=== PATIENT | female | born 1990 | race Two or more races ===

== ENCOUNTER 2021-03-30 02:14 | Inpatient (IN) | payer MEDICAID ==
[~2021-03-30] VITALS: Ht 167.6 cm; Wt 86.0 kg
[2021-03-30 02:41] VITALS: BP 124/73
[2021-03-30 03:02] LABS: MICROSCOPIC INDICATED
[2021-03-30] MEDS ORDERED: METOCLOPRAMIDE 5 MG/ML, 2ML ONE (03:09)
[2021-03-30] MEDS ORDERED: NEWBORN KIT ONE (03:09)
[2021-03-30] MEDS ORDERED: SODIUM CITRATE/CITRIC ACID 15 ML UDC ONE (03:09)
[2021-03-30] MEDS ORDERED: OXYTOCIN 30U/ 0.9% NaCL 500ML 500 ML ONE (03:09)
[2021-03-30 03:15] VITALS: BP 124/73
[2021-03-30 03:30] VITALS: BP 124/73
[2021-03-30] MEDS ORDERED: CEFAZOLIN PMX 1GM/50ML 50 ML IVPB ONE (03:30)
[2021-03-30] MEDS ORDERED: SODIUM CITRATE/CITRIC ACID 30 ML UDC PO ONE (03:30)
[2021-03-30] MEDS ORDERED: LACTATED RINGERS 1,000 ML IVBOLUS ONE (03:30)
[2021-03-30] MEDS ORDERED: PLEASE ENTER ALLERGIES MC SCH (03:30)
[2021-03-30] MEDS ORDERED: METOCLOPRAMIDE 5 MG/ML, 2ML IV ONE (03:30)
[2021-03-30] MEDS ORDERED: ONDANSETRON 2MG/ML, 2ML IVPush ONE (03:30)
[2021-03-30] MEDS ORDERED: LACTATED RINGERS 1,000 ML IV SCH (03:30)
[2021-03-30 03:36] LABS: AMPHETAMINE SCREEN, URINE Negative (Negative); BARBITURATE SCREEN, URINE Negative (Negative); BENZODIAZEPINE SCREEN, URINE Negative (Negative); CANNABINOID SCREEN, URINE Negative (Negative); COCAINE SCREEN, URINE Negative (Negative); METHADONE SCREEN, URINE Negative (Negative); OPIATE SCREEN, URINE Negative (Negative)
[2021-03-30 03:43] LABS: BASOPHILS % (AUTO) 1 % (0-1); EOSINOPHILS % (AUTO) 1 % (1-7); LYMPHOCYTES % (AUTO) 19 % (22-44); MEAN CORPUSCULAR HEMOGLOBIN 31.5 pg (27.0-34.8); MEAN CORPUSCULAR HGB CONC 35.3 g/dL (32.4-35.8); MEAN PLATELET VOLUME 7.9 fL (7.4-10.4); MONOCYTES % (AUTO) 6 % (2-9); NEUTROPHILS % (AUTO) 73 % (42-75); PLATELET COUNT 389 x10^3/uL (130-400); RED BLOOD COUNT 3.58 x10^6/uL (3.82-5.3); RED CELL DISTRIBUTION WIDTH 13.6 % (9.6-15.2)
[2021-03-30 03:48] LABS: MD NO
[2021-03-30] MEDS ORDERED: EPHEDRINE 50 MG/ML, 1ML IVPush PRN (06:30)
[2021-03-30] MEDS ORDERED: FENTANYL/BUPIV./NS/PF 250 ML EPIDCONT SCH (06:30)
[2021-03-30] MEDS ORDERED: LACTATED RINGERS 1,000 ML IVBOLUS PRN (06:30)
[2021-03-30] MEDS ORDERED: DEXAMETHASONE 4 MG/ML, 1ML ONE (06:58)
[2021-03-30] MEDS ORDERED: EPHEDRINE 50 MG/ML, 1ML ONE (06:58)
[2021-03-30] MEDS ORDERED: OXYTOCIN 10 UNITS/ML, 1ML ONE (06:58)
[2021-03-30] MEDS ORDERED: PHENYLEPHRINE 10 MG/ML ONE (06:58)
[2021-03-30] MEDS ORDERED: CEFAZOLIN 1,000 MG ONE (06:58)
[2021-03-30] MEDS ORDERED: KETOROLAC 30 MG/1 ML ONE (06:58)
[2021-03-30] MEDS ORDERED: ONDANSETRON 2MG/ML, 2ML ONE (06:58)
[2021-03-30] MEDS ORDERED: FENTANYL PF 100 MCG/2ML ONE (06:58)
[2021-03-30] MEDS ORDERED: HYDROmorphone 2 MG/ML, 1ML IVPush PRN (07:00)
[2021-03-30] MEDS ORDERED: MIDAZOLAM 1 MG/ML, 2ML IV PRN (07:00)
[2021-03-30] MEDS ORDERED: ALBUTEROL SULFATE 2.5 MG/3 ML NPPB PRN (07:00)
[2021-03-30] MEDS ORDERED: FENTANYL PF 100 MCG/2ML IV PRN (07:00)
[2021-03-30] MEDS ORDERED: hydrALAzine 20 MG/ML, 1ML IV PRN (07:00)
[2021-03-30] MEDS ORDERED: PROMETHAZINE 25 MG/ML, 1ML IV PRN (07:00)
[2021-03-30] MEDS ORDERED: HYDROcodone/APAP 7.5-325MG/15ML UDC PO PRN (07:00)
[2021-03-30] MEDS ORDERED: LABETALOL 5MG/ML, 20ML IV PRN (07:00)
[2021-03-30] MEDS ORDERED: METOPROLOL 1 MG/ML, 5ML IV PRN (07:00)
[2021-03-30] MEDS ORDERED: OXYcodone 5 MG/5 ML ORAL.SOL UDC PO PRN (07:00)
[2021-03-30] MEDS ORDERED: ONDANSETRON 2MG/ML, 2ML IVPush PRN (07:00)
[2021-03-30] MEDS ORDERED: MEPERIDINE/PF 25MG/0.5ML IVPush PRN (07:00)
[2021-03-30] MEDS ORDERED: HYDROmorphone 2 MG/ML, 1ML ONE (07:24)
[2021-03-30] MEDS: LACTATED RINGERS 1,000 ML IV SCH ×5 (07:30→23:30)
[2021-03-30] MEDS ORDERED: MEPERIDINE/PF 50 MG/ML IM PRN (07:30)
[2021-03-30] MEDS ORDERED: IBUPROFEN 600 MG TABLET PO PRN (07:30)
[2021-03-30] MEDS ORDERED: MISOPROSTOL 200 MCG TABLET PR PRN (07:30)
[2021-03-30] MEDS ORDERED: METOCLOPRAMIDE 5 MG/ML, 2ML IV PRN (07:30)
[2021-03-30] MEDS ORDERED: morphine SULFATE 10 MG/ML, 1ML IM PRN (07:30)
[2021-03-30] MEDS ORDERED: ONDANSETRON 2MG/ML, 2ML IV PRN (07:30)
[2021-03-30] MEDS: OXYTOCIN 30U/ 0.9% NaCL 500ML 500 ML IV SCH ×2 (09:00→18:03)
[2021-03-30] MEDS: HYDROcodone/APAP 5/325 TABLET PO PRN ×3 (11:12→20:09)
[2021-03-30] MEDS: MORPHINE SULFATE 4 MG/ML, 1ML IVPush PRN ×2 (12:38→19:41)
[2021-03-30] MEDS: KETOROLAC 30 MG/1 ML IVPush SCH ×2 (13:56→20:08)
[2021-03-30 15:49] VITALS: BP 128/72
[2021-03-30] MEDS: PRENATAL VIT/IRON/FA 1 EACH TABLET PO SCH (16:18)
[2021-03-30] MEDS: SIMETHICONE 80 MG CHEW TAB PO PRN (16:19)
[2021-03-30 17:51] LABS: BASOPHILS % (AUTO) 0 % (0-1); EOSINOPHILS % (AUTO) 0 % (1-7); LYMPHOCYTES % (AUTO) 16 % (22-44); MEAN CORPUSCULAR HGB CONC 33.9 g/dL (32.4-35.8); MEAN PLATELET VOLUME 8.1 fL (7.4-10.4); MONOCYTES % (AUTO) 6 % (2-9); NEUTROPHILS % (AUTO) 77 % (42-75); PLATELET COUNT 310 x10^3/uL (130-400); RED BLOOD COUNT 3.47 x10^6/uL (3.82-5.3); RED CELL DISTRIBUTION WIDTH 13.6 % (9.6-15.2)
[2021-03-30 17:52] LABS: MD NO
[2021-03-30 19:30] VITALS: BP 123/77
[2021-03-30] MEDS: DOCUSATE 100 MG CAPSULE PO PRN (20:08)
[2021-03-31 01:00] VITALS: BP 111/70
[2021-03-31] MEDS: HYDROcodone/APAP 5/325 TABLET PO PRN ×3 (01:38→13:11)
[2021-03-31] MEDS: KETOROLAC 30 MG/1 ML IVPush SCH ×5 (02:20→20:33)
[2021-03-31] MEDS: SIMETHICONE 80 MG CHEW TAB PO PRN ×3 (02:20→20:25)
[2021-03-31] MEDS: OXYTOCIN 30U/ 0.9% NaCL 500ML 500 ML IV SCH ×3 (03:30→23:30)
[2021-03-31] MEDS: LACTATED RINGERS 1,000 ML IV SCH ×6 (03:30→23:30)
[2021-03-31 04:16] VITALS: BP 110/69
[2021-03-31 07:00] VITALS: BP 118/81
[2021-03-31] MEDS: DOCUSATE 100 MG CAPSULE PO PRN ×2 (08:34→20:25)
[2021-03-31] MEDS: PRENATAL VIT/IRON/FA 1 EACH TABLET PO SCH (08:34)
[2021-03-31 19:01] VITALS: BP 113/77
[2021-03-31] MEDS: IBUPROFEN 600 MG TABLET PO PRN (20:48)
[2021-04-01] MEDS: HYDROcodone/APAP 5/325 TABLET PO PRN ×5 (01:49→22:05)
[2021-04-01] MEDS: IBUPROFEN 600 MG TABLET PO PRN ×3 (02:58→20:24)
[2021-04-01 07:30] VITALS: BP 138/88
[2021-04-01] MEDS: SIMETHICONE 80 MG CHEW TAB PO PRN ×2 (08:14→20:24)
[2021-04-01] MEDS: DOCUSATE 100 MG CAPSULE PO PRN ×2 (08:15→22:05)
[2021-04-01] MEDS: PRENATAL VIT/IRON/FA 1 EACH TABLET PO SCH (08:15)
[2021-04-01] MEDS ORDERED: IBUPROFEN 600 MG TABLET PO PRN (14:00)
[2021-04-01 19:01] VITALS: BP 138/87
[2021-04-02] MEDS: IBUPROFEN 600 MG TABLET PO PRN ×3 (02:39→17:38)
[2021-04-02] MEDS: SIMETHICONE 80 MG CHEW TAB PO PRN (03:03)
[2021-04-02 07:40] VITALS: BP 131/84
[2021-04-02] MEDS: PRENATAL VIT/IRON/FA 1 EACH TABLET PO SCH (07:47)
[2021-04-02] MEDS: DOCUSATE 100 MG CAPSULE PO PRN (07:47)
[2021-04-02] MEDS: HYDROcodone/APAP 5/325 TABLET PO PRN ×3 (07:48→17:39)
[2021-04-02] MEDS ORDERED: OXYC1TAB14 PO (10:07)
[2021-04-02] MEDS ORDERED: IBUP-1222 PO (10:07)
== END 2021-04-02 18:15 | disposition home or self-care (01) | DRG 788 ==
LOC: LDOP 02:14 → LDIP 03:18 → 2NW 11:09
PROVIDERS: ADMIT Obstetrics & Gynecology Female Pelvic Medicine and Reconstructive Surgery; ATTEND Obstetrics & Gynecology Female Pelvic Medicine and Reconstructive Surgery
PROC: 10D00Z1 Extraction of Products of Conception, Low, Open Approach (ICD-10-PCS; principal; 2021-03-30)
DX: O32.1XX0 Maternal care for breech presentation, not applicable or unspecified (principal); Z37.0 Single live birth; Z3A.37 37 weeks gestation of pregnancy
CPT/HCPCS: 36415; 76815; 80307; 81001; 85025; 86592; 86850; 86900; 87086; 87635; G0378; J0690; J1100; J1170; J1885; J2405; J3010; J2270; J2370; J2590; J2765; J7120